=== PATIENT | male | born 1995 | race Caucasian/White ===

== ENCOUNTER 2016-09-19 05:18 | Emergency (ER) | payer OTHER ==
[2016-09-19 05:27] VITALS: PULSE 60
--- NOTE | 2016-09-19 06:25 | EDPHY ---
H & P Stated Complaint: swallowed toothpick Time Seen by Provider: 09/19/16 05:55 HPI/ROS: HPI The patient presents with abdominal pain after swallowing a toothpick about 12 hours ago. He felt fine afterwards, then awoke tonight with abdominal pain which is mild, achy in nature, in his upper abdomen, does not radiate. He has not had any vomiting. He has not had any drooling. He has been able to pass gas.. REVIEW OF SYSTEMS Constitutional: No fever, no chills. Eyes: No discharge. ENT: No sore throat. Cardiovascular: No chest pain, no palpitations. Respiratory: No cough, no shortness of breath. Gastrointestinal: See HPI Genitourinary: No hematuria. Musculoskeletal: No back pain. Skin: No rashes. Neurological: No headache. PMHx: Healthy Soc Hx: College student PHYSICAL General Appearance: Alert, no distress Eyes: Pupils equal and round no pallor or injection ENT, Mouth: Mucous membranes moist Respiratory: There are no retractions, lungs are clear to auscultation Cardiovascular: Regular rate and rhythm Gastrointestinal: Abdomen is soft and non-tender, no masses, bowel sounds normal Neurological: A&O, moves all extremities Skin: Warm and dry, no rashes Musculoskeletal: Neck is supple non tender Extremities: symmetrical, full range of motion Psychiatric: Patient is oriented X 3, there is no agitation Source: Patient Exam Limitations: No limitations - Personal History Current Tetanus/Diphtheria Vaccine: Yes Current Tetanus Diphtheria and Acellular Pertussis (TDAP): Yes - Medical/Surgical History Hx Asthma: Yes Hx Chronic Respiratory Disease: No Hx Diabetes: No Hx Cardiac Disease: No Hx Renal Disease: No Hx Cirrhosis: No Hx Alcoholism: No Hx HIV/AIDS: No Hx Splenectomy or Spleen Trauma: No Other PMH: ASTHMA/MIGRAINE R/T ALLERGIES - Social History Smoking Status: Never smoked Constitutional: Initial Vital Signs Temperature (C) 36.6 C 09/19/16 05:23 Heart Rate 60 09/19/16 05:23 Respiratory Rate 16 09/19/16 05:23 Blood Pressure 121/73 H 09/19/16 05:23 O2 Sat (%) 94 09/19/16 05:23 O2 Delivery Mode Room Air Allergies/Adverse Reactions: No Known Allergies Allergy (Unverified 09/19/16 05:23) Home Medications: Medication Instructions Recorded Albuterol 10/03/15 Nasonex 10/03/15 ZYRTEC 10/03/15 Medical Decision Making Differential Diagnosis: This is a 21-year-old man who swallowed a small tooth back inside of the same watch approximately 13 hours prior to presentation. He is now complaining of abdominal pain. His abdominal exam is benign. Chest x-ray was obtained which showed no foreign body. Differential diagnosis includes intestinal foreign body , gastroenteritis, less likely bowel or gastric perforation. I have offered him a CT scan, however he declines. He would like to monitor his symptoms at home and will return to the emergency room if he is worse in any way. I feel this is reasonable. Departure - Departure Disposition: Home, Routine, Self-Care Clinical Impression: Foreign body Condition: Good Instructions: Foreign Body Ingestion (ED) Additional Instructions: Please return to the emergency room at any time if you would like to perform CT scan. You should return immediately if you have abdominal pain, vomiting, any other concerns. Referrals: ADRIANNA CHAPARRO [Other] - As per Instructions
[2016-09-19 06:36] VITALS: BP 131/73; RESP 14; TEMP 97.7; O2SAT 92
== END 2016-09-19 06:35 | disposition home or self-care (01) ==
DX: T18.9XXA Foreign body of alimentary tract, part unspecified, initial encounter (principal); J45.909 Unspecified asthma, uncomplicated; X58.XXXA Exposure to other specified factors, initial encounter